=== PATIENT | male | born 1960 | race Caucasian/White ===

== ENCOUNTER 2016-10-14 12:16 | Emergency (ER) | payer OTHER ==
[~2016-10-14] VITALS: Ht 188 cm; Wt 75.0 kg
[~2016-10-14 12:16] MED LIST: MOBI7.5T PO
[2016-10-14 12:18] VITALS: BP 133/89; PULSE 110; RESP 20; TEMP 98.2; O2SAT 100
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
[2016-10-14] MEDS ORDERED: KETOROLAC TROMETHAMINE 30 MG/ML (IVP) VIAL IV PUSH ONE (14:00)
[2016-10-14 14:16] LABS: AUTOMATED NEUTROPHIL # 5.2 TH/MM3 (1.8-7.7); BASOPHIL # 0.1 TH/MM3 (0-0.2); BASOPHIL % 0.8 % (0.0-2.0); EOSINOPHIL # 0.1 TH/MM3 (0-0.4); EOSINOPHIL % 1.6 % (0.0-4.0); HEMATOCRIT 43.6 % (39.0-51.0); HEMO FLAGS DIFF FINAL; LYMPH % 18.7 % (9.0-44.0); LYMPHOCYTE # 1.4 TH/MM3 (1.0-4.8); MEAN CELL VOLUME 100.8 FL (80.0-100.0); MEAN CORPUSCULAR HEMOGLOBIN 35.6 PG (27.0-34.0); MEAN CORPUSCULAR HGB CONC 35.3 % (32.0-36.0); MONO % 10.8 % (0.0-8.0); NEUT % 68.1 % (16.0-70.0); PLATELET COUNT 167 TH/MM3 (150-450); RED BLOOD COUNT 4.33 MIL/MM3 (4.50-5.90); RED CELL DISTRIBUTION WIDTH 13.1 % (11.6-17.2); WHITE BLOOD COUNT 7.6 TH/MM3 (4.0-11.0)
[2016-10-14 14:31] LABS: POTASSIUM 3.9 MEQ/L (3.5-5.1)
--- NOTE | 2016-10-14 16:06 | RADRPT ---
EXAM DATE/TIME: 10/14/2016 14:49 [facility] COMPARISON: No previous studies available for comparison. INDICATIONS : Testicular pain and swelling. MEDICAL HISTORY : Anemia. Dupuytren's disease. SURGICAL HISTORY : Jaw wire after fracture. Right 5th finger amputated. ENCOUNTER: Initial ACUITY: 3 days PAIN SCORE: 6/10 LOCATION: Bilateral testicles. MEASUREMENTS: RIGHT TESTICLE: 4.8 x 3.0 x 2.4cm LEFT TESTICLE: 4.1 x 2.6 x 2.2cm FINDINGS: RIGHT TESTICLE: Homogeneous echotexture without intra or extratesticular mass. Blood flow is symmetric and within no rmal limits. No varicocele. Epididymis is mildly enlarged compared to left with increased vasculari ty. There is a moderate size hydrocele. There is an epididymal head cyst measuring 4 mm. LEFT TESTICLE: Homogeneous echotexture without intra or extratesticular mass. Blood flow is symmetric and within no rmal limits. No varicocele. There is a small hydrocele. Epididymis is within normal limits. SCROTUM: Within normal limits. CONCLUSION: 1. Mildly enlarged and hyperemic right epididymis could represent acute epididymitis in the [facility] clinical setting. 2. Bilateral hydroceles, right larger than left. Howie Sellers MD on October 14, 2016 at 16:02 Board Certified Radiologist. This report was verified electronically.
[2016-10-14] MEDS ORDERED: cefTRIAXone 250 MG VIAL IM ONE (16:15)
[2016-10-14] MEDS ORDERED: LIDOCAINE HCL 1% 50 ML VIAL XX ONE (16:15)
[2016-10-14] MEDS ORDERED: DOXY1CAP91 PO (16:22)
[2016-10-14] MEDS ORDERED: ACET500T3 PO (16:22)
== END 2016-10-14 16:51 | disposition home or self-care (01) ==
LOC: NEPE 12:16
DX: N45.1 Epididymitis (principal)
CPT/HCPCS: 76870; 80048; 85025; 93975; 96372; 96374; 99284; J0696; J1885

== ENCOUNTER 2016-11-17 20:16 | Inpatient (IN) | payer OTHER ==
[~2016-11-17] VITALS: Ht 172.7 cm; Wt 75.1 kg
[~2016-11-17 20:16] MED LIST changes: +ACET500T3 PO; +DOXY1CAP91 PO
[2016-11-17] MEDS ORDERED: SODIUM CHLOR 0.9% 1000 ML INJ 1,000 ML IV SCH (20:30)
[2016-11-17 20:36] VITALS: BP 146/67; PULSE 95; RESP 20; TEMP 97.5; O2SAT 100
[2016-11-17 20:42] LABS: AUTOMATED NEUTROPHIL # 3.9 TH/MM3 (1.8-7.7); BASOPHIL # 0.1 TH/MM3 (0-0.2); BASOPHIL % 1.1 % (0.0-2.0); EOSINOPHIL % 0.9 % (0.0-4.0); HEMATOCRIT 42.5 % (39.0-51.0); HEMO FLAGS DIFF FINAL; LYMPH % 21.5 % (9.0-44.0); LYMPHOCYTE # 1.2 TH/MM3 (1.0-4.8); MEAN CELL VOLUME 101.9 FL (80.0-100.0); MEAN CORPUSCULAR HEMOGLOBIN 36.2 PG (27.0-34.0); MEAN CORPUSCULAR HGB CONC 35.6 % (32.0-36.0); MONO % 9.4 % (0.0-8.0); NEUT % 67.1 % (16.0-70.0); PLATELET COUNT 179 TH/MM3 (150-450); RED BLOOD COUNT 4.17 MIL/MM3 (4.50-5.90); RED CELL DISTRIBUTION WIDTH 13.4 % (11.6-17.2); WHITE BLOOD COUNT 5.8 TH/MM3 (4.0-11.0)
--- NOTE | 2016-11-17 20:57 | RADRPT ---
EXAM DATE/TIME: 11/17/2016 20:42 INDICATION: Trauma [facility] COMPARISON: No previous studies available for comparison. TECHNIQUE: Multiple contiguous axial images were obtained of the head. Using automated exposure control and adj ustment of the mA and/or kV according to patient size, radiation dose was kept as low as reasonably a chievable to obtain optimal diagnostic quality images. FINDINGS: CEREBRUM: The ventricles are normal for age. No evidence of midline shift, mass lesion, hemorrhage or acute in farction. No extra-axial fluid collections are seen. POSTERIOR FOSSA: The cerebellum and brainstem are intact. The 4th ventricle is midline. The cerebellopontine angle i s unremarkable. EXTRACRANIAL: The visualized portion of the orbits is intact. SKULL: The calvaria is intact. No evidence of skull fracture. CONCLUSION: No acute disease. Robinson Cameron MD on November 17, 2016 at 20:55 Board Certified Radiologist. This report was verified electronically.
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
--- NOTE | 2016-11-17 21:39 | RADRPT ---
EXAM DATE/TIME: 11/17/2016 20:57 [facility] COMPARISON: No previous studies available for comparison. INDICATIONS : Left elbow pain and abrasion, fell MEDICAL HISTORY : None. SURGICAL HISTORY : None. ENCOUNTER: Initial ACUITY: 1 day PAIN SCORE: 2/10 LOCATION: Left elbow FINDINGS: There is a tiny radiopaque foreign body within the soft tissues of the proximal forearm. There is no acute fracture or dislocation of the elbow. CONCLUSION: 1. Tiny radiopaque foreign body within the soft tissues of the left proximal forearm. 2. No acute fracture or dislocation of the left elbow. Robinson Cameron MD on November 17, 2016 at 21:35 Board Certified Radiologist. This report was verified electronically.
--- NOTE | 2016-11-17 21:41 | RADRPT ---
EXAM DATE/TIME: 11/17/2016 21:07 [facility] COMPARISON: No previous studies available for comparison. INDICATIONS : Left hip, pelvic pain, fell MEDICAL HISTORY : None. SURGICAL HISTORY : None. ENCOUNTER: Initial ACUITY: 1 day PAIN SCORE: 10/10 LOCATION: Left hip FINDINGS: There is an acute fracture involving the left iliac wing. Degenerative changes are noted involving t he lower lumbar spine. Mild degenerative changes are noted involving the hips bilaterally. There is no acute fracture or dislocation of either hip. CONCLUSION: 1. Acute fracture involving the left iliac wing. 2. Degenerative changes involving the lower lumbar spine. 3. No acute fracture or dislocation of either hip. 4. Mild degenerative changes involving the hips bilaterally. Robinson Cameron MD on November 17, 2016 at 21:32 Board Certified Radiologist. This report was verified electronically.
[2016-11-17] MEDS ORDERED: ONDANSETRON HCL 4 MG/2 ML VIAL IV PUSH ONE (21:45)
[2016-11-17] MEDS ORDERED: HYDROmorphone HCL PF 1 MG/ML VIAL IV PUSH ONE (21:45)
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
[2016-11-17 23:00] LABS: BICARBONATE 25.7 MEQ/L (21.0-32.0); POTASSIUM 3.6 MEQ/L (3.5-5.1)
[2016-11-17 23:01] VITALS: BP 134/73; PULSE 104; RESP 20; O2SAT 98
[2016-11-17] MEDS ORDERED: IOHEXOL 350 MG/ML 10 ML VIAL (for RAD DIAG) IV ONE (23:43)
--- NOTE | 2016-11-17 23:56 | RADRPT ---
EXAM DATE/TIME: 11/17/2016 23:28 [facility] COMPARISON: No previous studies available for comparison. INDICATIONS : Evaluate fracture and for hemorrhage. IV CONTRAST: 96 cc Omnipaque 350 (iohexol) IV ORAL CONTRAST: No oral contrast ingested. RADIATION DOSE: 11.99 CTDIvol (mGy) MEDICAL HISTORY : None SURGICAL HISTORY : None. ENCOUNTER: Initial ACUITY: 1 day PAIN SCALE: 10/10 LOCATION: Left pelvis TECHNIQUE: Volumetric scanning of the pelvis was performed. Using automated exposure control and adjustment of t he mA and/or kV according to patient size, radiation dose was kept as low as reasonably achievable to obtain optimal diagnostic quality images. FINDINGS: There is a mildly comminuted left iliac wing fracture associated with a hematoma within the iliopsoas musculature on the left thickening the muscle contour to a diameter of about 3.9 cm compared with 1. 3 cm on the non-injured side. There is also some overlying superficial contusion. No other fractures identified. Hips intact. CONCLUSION: 1. Slightly comminuted left iliac wing fracture associated with iliopsoas hematoma as above. Sean Wooten MD on November 17, 2016 at 23:52 Board Certified Radiologist. This report was verified electronically.
[2016-11-18] VITALS (8 sets, daily range): BP systolic 105–151; BP diastolic 52–82; PULSE 78–93; RESP 12–20; TEMP 97.1–98.1; O2SAT 96–99
[2016-11-18] MEDS ORDERED: HYDROmorphone HCL PF 1 MG/ML VIAL IV PUSH ONE
[2016-11-18] MEDS: SODIUM CHLOR 0.9% 1000 ML INJ 1,000 ML IV SCH ×3 (01:08→21:08)
[2016-11-18] MEDS ORDERED: ONDANSETRON HCL 4 MG/2 ML VIAL IVP PRN (01:15)
[2016-11-18] MEDS ORDERED: SODIUM CHLORIDE 0.9% FLUSH 10 ML FLUSH IV FLUSH PRN (01:15)
[2016-11-18] MEDS ORDERED: BISACODYL 10 MG SUPP PR PRN (01:15)
[2016-11-18] MEDS ORDERED: ACETAMINOPHEN 325 MG TAB PO PRN (01:15)
[2016-11-18] MEDS ORDERED: ACETAMINOPHEN/HYDROcodone 325 MG/5 MG TAB PO PRN (01:15)
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
[2016-11-18] MEDS ORDERED: LORazepam 2 MG TAB PO PRN (04:00)
[2016-11-18] MEDS ORDERED: LORazepam 1 MG TAB PO PRN (04:00)
[2016-11-18] MEDS ORDERED: FLUMAZENIL 0.5 MG/5 ML VIAL IV PUSH PRN (04:00)
[2016-11-18] MEDS ORDERED: HALOPERIDOL LACTATE 5 MG/ML AMP IM PRN (04:00)
[2016-11-18] MEDS ORDERED: LORazepam 2 MG/ML VIAL IV PUSH PRN ×4 (04:00)
[2016-11-18] MEDS: MULTIVITAMIN INJ 10 ML, FOLIC ACID INJ 1 MG in SODIUM CHLORID 0.9% 500 ML INJ 500 ML IV SCH (04:00)
[2016-11-18] MEDS: HYDROmorphone HCL PF 1 MG/ML VIAL IV PRN ×6 (04:09→23:36)
[2016-11-18] MEDS: THIAMINE INJ 100 MG in SODIUM CHLORIDE 0.9% INJ 100 ML IV SCH (04:49)
[2016-11-18] MEDS: SODIUM CHLORIDE 0.9% FLUSH 10 ML FLUSH IV FLUSH SCH ×2 (08:23→20:59)
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
[2016-11-19] VITALS: BP 157/81; PULSE 96; RESP 20; TEMP 99; O2SAT 97
[2016-11-19] MEDS: HYDROmorphone HCL PF 1 MG/ML VIAL IV PRN ×4 (02:16→11:49)
[2016-11-19] MEDS: THIAMINE INJ 100 MG in SODIUM CHLORIDE 0.9% INJ 100 ML IV SCH (03:42)
[2016-11-19] MEDS: MULTIVITAMIN INJ 10 ML, FOLIC ACID INJ 1 MG in SODIUM CHLORID 0.9% 500 ML INJ 500 ML IV SCH (03:43)
[2016-11-19 04:00] VITALS: BP 127/89; PULSE 90; RESP 20; TEMP 98.3; O2SAT 98
[2016-11-19 06:13] LABS: AUTOMATED NEUTROPHIL # 2.6 TH/MM3 (1.8-7.7); BASOPHIL % 0.7 % (0.0-2.0); EOSINOPHIL # 0.1 TH/MM3 (0-0.4); EOSINOPHIL % 2.6 % (0.0-4.0); HEMATOCRIT 36.4 % (39.0-51.0); HEMO FLAGS DIFF FINAL; LYMPH % 29.1 % (9.0-44.0); LYMPHOCYTE # 1.4 TH/MM3 (1.0-4.8); MEAN CELL VOLUME 101.3 FL (80.0-100.0); MEAN CORPUSCULAR HEMOGLOBIN 36.3 PG (27.0-34.0); MEAN CORPUSCULAR HGB CONC 35.8 % (32.0-36.0); MONO % 12.4 % (0.0-8.0); NEUT % 55.2 % (16.0-70.0); PLATELET COUNT 129 TH/MM3 (150-450); RED CELL DISTRIBUTION WIDTH 13.3 % (11.6-17.2); WHITE BLOOD COUNT 4.7 TH/MM3 (4.0-11.0)
[2016-11-19 06:21] LABS: ALKALINE PHOSPHATASE 64 U/L (45-117); ALT (GPT) 29 U/L (12-78); ANION GAP 7 MEQ/L (5-15); AST (GOT) 35 U/L (15-37); BICARBONATE 28.5 MEQ/L (21.0-32.0); BLOOD UREA NITROGEN 4 MG/DL (7-18); CHLORIDE 100 MEQ/L (98-107); GLOMERULAR FILTRATION RATE 145 ML/MIN (>89); POTASSIUM 3.7 MEQ/L (3.5-5.1); SODIUM (NA) 135 MEQ/L (136-145); TOTAL BILIRUBIN ADULT 0.8 MG/DL (0.2-1.0)
[2016-11-19 08:00] VITALS: BP 130/75; PULSE 91; RESP 18; TEMP 98.1; O2SAT 96
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
[2016-11-19] MEDS ORDERED: GETGO ROLLING W1 MI1 (10:40)
[2016-11-19] MEDS ORDERED: OXYC-392 PO (10:47)
[2016-11-19] MEDS ORDERED: IBUP-232 PO (10:47)
--- NOTE | 2016-11-19 10:48 | HHI.FF ---
Face to Face Verification Diagnosis: (1) Fall (2) Pelvic fracture (3) Fracture of iliac wing (4) Tobacco abuse (5) Alcohol abuse Physical Therapy Order: Evaluate and Treat, Improve ambulation, Strength and gait training Home Health Nursing Order: Medical education Signs/symptoms of disease process Medication education-adverse effect Nursing assessment with vital signs I have seen patient Perfecto Hart on 11/19/16. My clinical findings support the need for the requested home health care services because: Ltd mobility - disease progression Deconditioned w/ increased weakness Med compliance is questionable Need for psychosocial assistance High risk of falls I certify that my clinical findings support that this patient is homebound because: Unsteady gait/balance Unsafe to leave home unassisted Need for psychosocial assistance Jordy Nava DO Nov 19, 2016 10:48
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
[2016-11-19] MEDS ORDERED: KETOROLAC TROMETHAMINE 30 MG/ML (IVP) VIAL IV PUSH ONE (11:15)
[2016-11-19 12:30] VITALS: BP 118/70; PULSE 80; RESP 16; TEMP 97.1; O2SAT 96
[2016-11-21] MEDS ORDERED: THIAMINE HCL 100 MG TAB PO SCH (09:00)
== END 2016-11-19 13:42 | disposition home health service (06) | DRG 536 ==
LOC: NEPE 20:16 → NEDA 11-18 00:58 → N06B 11-18 17:30
PROVIDERS: ADMIT Hospitalist; ATTEND Hospitalist
DX: S32.392A Other fracture of left ilium, initial encounter for closed fracture (principal); F40.240 Claustrophobia; F10.129 Alcohol abuse with intoxication, unspecified; F17.210 Nicotine dependence, cigarettes, uncomplicated; V86.69XA Passenger of other special all-terrain or other off-road motor vehicle injured in nontraffic accident, initial encounter; Y90.8 Blood alcohol level of 240 mg/100 ml or more; Z85.830 Personal history of malignant neoplasm of bone
CPT/HCPCS: 70450; 71010; 72125; 72131; 72193; 73080; 73503; 80048; 80053; 80307; 82948; 85025; 96361; 96374; 96375; 96376; J1170; J1885; J2060; J2405; J3411; J7030; J7040; Q9967